=== PATIENT | male | born 1995 | race African-American/Black ===

== ENCOUNTER 2019-10-09 03:58 | Emergency (ER) | payer BC, OTHER ==
[~2019-10-09] VITALS: Ht 177.8 cm; Wt 63.5 kg
[~2019-10-09 03:58] MED LIST: ADDERALL 20 MG20 M1 PO; IBUPROFEN 600600 M1 PO; NORFLEX100 MG PO
[2019-10-09 06:31] VITALS: BP 132/76
== END 2019-10-09 05:30 | disposition home or self-care (01) ==
LOC: ER 03:58
DX: R06.00 Dyspnea, unspecified (principal); F41.9 Anxiety disorder, unspecified; R07.89 Other chest pain; F17.210 Nicotine dependence, cigarettes, uncomplicated; R20.2 Paresthesia of skin; F12.10 Cannabis abuse, uncomplicated; Z88.8 Allergy status to other drugs, medicaments and biological substances

== ENCOUNTER 2020-04-18 10:53 | Emergency (ER) | payer OTHER ==
[~2020-04-18] VITALS: Ht 175.3 cm; Wt 61.7 kg
[2020-04-18 11:42] LABS: ABSOLUTE NEUTROPHILS 6.1 thou/uL (1.4-8.2); BASOPHILS 0.5 % (0.0-2.0); EOSINOPHILS 0.9 % (0.0-3.0); HEMATOCRIT 31.7 % (42.0-52.0); HEMOGLOBIN 10.5 gm/dL (14.0-18.0); LYMPHOCYTES 24.1 % (24.0-44.0); MCH 31.9 pg (26.0-34.0); MCHC 33.1 g/dL (28.0-37.0); MCV 96.4 fL (80.0-100.0); MONOCYTES 5.4 % (1.0-8.0); PLATELET COUNT 432 thou/uL (150-400); POLYS 69.1 % (36.0-66.0); RBC 3.29 mil/uL (4.50-6.00); RDW 14.5 % (10.5-14.5); WBC 8.9 thou/uL (4.0-11.0)
[2020-04-18 11:51] LABS: URINE BILIRUBIN NEGATIVE (Negative); URINE BLOOD NEGATIVE (Negative); URINE CLARITY CLEAR; URINE COLOR YELLOW; URINE GLUCOSE-RANDOM* 3+ (Negative); URINE KETONES NEGATIVE (Negative); URINE LEUKOCYTES-REFLEX NEGATIVE (Negative); URINE NITRITE-REFLEX NEGATIVE (Negative); URINE PROTEIN (DIPSTICK) NEGATIVE (Negative); URINE SPECIFIC GRAVITY <= 1.005 (1.005-1.035); URINE UROBILINOGEN 0.2 E.U./dl (0.2-1.0)
[2020-04-18 11:57] LABS: BE(vivo) -2.6 mmol/L (-2 to +3); HCO3 21.4 mmol/L (22.0-26.0)
[2020-04-18 12:00] LABS: CALCIUM 9.1 mg/dL (8.5-10.1); CREATININE 1.1 mg/dL (0.7-1.3); POTASSIUM 5.3 mmol/L (3.5-5.1)
[2020-04-18 12:03] LABS: ALBUMIN 3.4 g/dL (3.4-5.0); TOTAL BILIRUBIN 1.4 mg/dL (0.2-1.0); TOTAL PROTEIN 6.5 g/dL (6.4-8.2)
--- NOTE | 2020-04-18 12:46 | EKG ---
[place] [address] [employer] [facility] [email or web address] [address] ELECTROCARDIOGRAM REPORT Name: MARGARITA BANKS Room #: [id number] Admission: 04/18/20 Attend Phys: Discharge: Date of : [birth year] Report #: [id number] [facility] ED Test Date: 2020-04-18 Test Time: 10:57:01 Pat Name: MARGARITA BANKS Department: Room: Gender: Repairer Pump: [facility] : 1995 Requested By: Damion Dick Order Number: [id number] MD: Marty Delatorre Measurements Intervals [place] Rate: 86 P: 55 MN: 179 QRS: 73 QRSD: 84 T: 48 QT: 353 QTc: 423 Interpretive Statements Sinus rhythm RSR' in V1 or V2, right VCD or RVH No previous ECG available for comparison Electronically Signed On 04-18-2020 12:46:28 [employer] by Marty Delatorre [email or web address] <ELECTRONICALLY SIGNED> By: Marty Delatorre MD, [facility] 04/18/20 1246 1057 1057 Marty Delatorre MD, FACC /EPI
[2020-04-18] MEDS ORDERED: OMEPRAZOLE 20 M20 M1 PO (14:43)
[2020-04-18] MEDS ORDERED: CARAFATE 1 GM TA1 G1 PO (14:43)
[2020-04-18 15:11] VITALS: BP 124/78
== END 2020-04-18 15:11 | disposition home or self-care (01) ==
LOC: ER 10:53
PROVIDERS: Physician Assistant
DX: R07.89 Other chest pain (principal); K21.9 Gastro-esophageal reflux disease without esophagitis; E10.65 Type 1 diabetes mellitus with hyperglycemia; F17.210 Nicotine dependence, cigarettes, uncomplicated; Z79.899 Other long term (current) drug therapy

== ENCOUNTER 2020-05-07 11:18 | Emergency (ER) | payer OTHER ==
[~2020-05-07] VITALS: Ht 175.3 cm; Wt 61.2 kg
[~2020-05-07 11:18] MED LIST changes: +CARAFATE 1 GM TA1 G1 PO; +OMEPRAZOLE 20 M20 M1 PO
[2020-05-07 12:07] LABS: BE(vivo) -6.2 mmol/L (-2 to +3); HCO3 17.6 mmol/L (22.0-26.0); PCO2 VENOUS 30.7 mmHg (41.0-51.0); PO2 VENOUS 59.2 mmHg (35.0-45.0)
[2020-05-07 12:13] LABS: ABSOLUTE NEUTROPHILS 3.7 thou/uL (1.4-8.2); BASOPHILS 0.8 % (0.0-2.0); HEMATOCRIT 41.4 % (42.0-52.0); HEMOGLOBIN 14.3 gm/dL (14.0-18.0); LYMPHOCYTES 28.1 % (24.0-44.0); MCH 32.7 pg (26.0-34.0); MCHC 34.5 g/dL (28.0-37.0); MCV 94.7 fL (80.0-100.0); MONOCYTES 5.8 % (1.0-8.0); PLATELET COUNT 249 thou/uL (150-400); POLYS 63.3 % (36.0-66.0); RBC 4.37 mil/uL (4.50-6.00); WBC 5.9 thou/uL (4.0-11.0)
[2020-05-07 12:29] LABS: CALCIUM 9.2 mg/dL (8.5-10.1); POTASSIUM 4.6 mmol/L (3.5-5.1)
[2020-05-07 12:35] LABS: ALBUMIN 4.1 g/dL (3.4-5.0); TOTAL PROTEIN 7.7 g/dL (6.4-8.2)
[2020-05-07] MEDS ORDERED: [UNRECOGNIZED DRUG - OTHER] SUBQ (12:38)
[2020-05-07 13:24] LABS: URINE BILIRUBIN NEGATIVE (Negative); URINE BLOOD NEGATIVE (Negative); URINE CLARITY CLEAR; URINE COLOR YELLOW; URINE GLUCOSE-RANDOM* 3+ (Negative); URINE KETONES 3+ (Negative); URINE LEUKOCYTES-REFLEX NEGATIVE (Negative); URINE NITRITE-REFLEX NEGATIVE (Negative); URINE PROTEIN (DIPSTICK) NEGATIVE (Negative); URINE SPECIFIC GRAVITY 1.015 (1.005-1.035); URINE UROBILINOGEN 0.2 E.U./dl (0.2-1.0)
[2020-05-07 15:30] LABS: CREATININE 0.7 mg/dL (0.7-1.3)
[2020-05-07 15:33] LABS: POTASSIUM 3.2 mmol/L (3.5-5.1)
[2020-05-07 15:40] LABS: CALCIUM 6.4 mg/dL (8.5-10.1)
[2020-05-07] MEDS ORDERED: REGLAN 10 MG TA10 MG PO (17:36)
[2020-05-07 18:24] VITALS: BP 126/88
== END 2020-05-07 18:25 | disposition home or self-care (01) ==
LOC: ER 11:18
PROVIDERS: Emergency Medicine
DX: E11.65 Type 2 diabetes mellitus with hyperglycemia (principal); R05 Cough; R10.9 Unspecified abdominal pain; R06.02 Shortness of breath; F17.210 Nicotine dependence, cigarettes, uncomplicated; Z79.4 Long term (current) use of insulin; Z88.8 Allergy status to other drugs, medicaments and biological substances

== ENCOUNTER 2021-01-02 22:04 | Emergency (ER) | payer OTHER ==
[~2021-01-02] VITALS: Ht 170.2 cm; Wt 62.1 kg
[~2021-01-02 22:04] MED LIST changes: +REGLAN 10 MG TA10 MG PO; +[UNRECOGNIZED DRUG - OTHER] SUBQ
[2021-01-03 02:00] LABS: ABSOLUTE NEUTROPHILS 11.2 thou/uL (1.4-8.2); BASOPHILS 1.1 % (0.0-2.0); EOSINOPHILS 0.1 % (0.0-3.0); HEMATOCRIT 47.3 % (42.0-52.0); LYMPHOCYTES 11.6 % (24.0-44.0); MCH 32.2 pg (26.0-34.0); MCHC 33.7 g/dL (28.0-37.0); MCV 95.5 fL (80.0-100.0); MONOCYTES 7.6 % (1.0-8.0); PLATELET COUNT 500 thou/uL (150-400); POLYS 79.6 % (36.0-66.0); RBC 4.95 mil/uL (4.50-6.00); RDW 13.6 % (10.5-14.5)
[2021-01-03 02:05] LABS: CALCIUM 10.4 mg/dL (8.5-10.1); CREATININE 1.2 mg/dL (0.7-1.3); POTASSIUM 5.1 mmol/L (3.5-5.1)
[2021-01-03 02:10] LABS: ALBUMIN 4.1 g/dL (3.4-5.0); MAGNESIUM 2.5 mg/dL (1.8-2.4); TOTAL BILIRUBIN 1.2 mg/dL (0.2-1.0); TOTAL PROTEIN 9.2 g/dL (6.4-8.2)
[2021-01-03 03:43] LABS: URINE BILIRUBIN 2+ (Negative); URINE BLOOD 1+ (Negative); URINE CLARITY CLEAR; URINE COLOR YELLOW; URINE GLUCOSE-RANDOM* 3+ (Negative); URINE KETONES 1+ (Negative); URINE LEUKOCYTES-REFLEX NEGATIVE (Negative); URINE NITRITE-REFLEX NEGATIVE (Negative); URINE PROTEIN (DIPSTICK) 2+ (Negative); URINE SPECIFIC GRAVITY >= 1.030 (1.005-1.035); URINE UROBILINOGEN 0.2 E.U./dl (0.2-1.0)
[2021-01-03 03:54] LABS: AMP/METHAMP Negative (Negative); BARBITURATES Negative (Negative); BENZODIAZEPINES Negative (Negative); COCAINE POSITIVE (Negative); METHADONE Negative (Negative); OPIATES Negative (Negative); PCP Negative (Negative)
[2021-01-03 05:31] LABS: BACTERIA-REFLEX 1-9 Few /HPF (None Seen); CALCIUM OXALATE >10 Many /LPF (None Seen); CASTS None Seen /LPF (None Seen); MUCUS 4-6 Moderate strn/LPF (None Seen); SQUAMOUS 4-10 Moderate /LPF (0-3); URINE RBC 3-10 Few /HPF (NONE SEEN); URINE WBC-REFLEX 0-5 Rare /HPF (0-5)
[2021-01-03] MEDS ORDERED: ZPAK PO (06:57)
[2021-01-03 07:03] VITALS: BP 124/76
== END 2021-01-03 06:52 | disposition home or self-care (01) ==
LOC: ER 22:04
PROVIDERS: Emergency Medicine
DX: U07.1 COVID-19 (principal); E86.0 Dehydration; E10.9 Type 1 diabetes mellitus without complications; F17.210 Nicotine dependence, cigarettes, uncomplicated; F12.90 Cannabis use, unspecified, uncomplicated; Z79.4 Long term (current) use of insulin; Z88.8 Allergy status to other drugs, medicaments and biological substances